=== PATIENT | female | born 1945 | race Caucasian/White ===

== ENCOUNTER 2017-10-18 11:21 | Day surgery (SDC) | payer OTHER ==
[2017-10-18] MEDS ORDERED: DiphenhydrAMINE 50 mg/ml Inj ONE (13:41)
[2017-10-18] MEDS ORDERED: Verapamil 2 ML ONE (14:01)
[2017-10-18] MEDS ORDERED: Midazolam 2 MG/2 ML VIAL ONE (14:01)
[2017-10-18] MEDS ORDERED: Iodixanol 320 MG/ML 100 ML BOTTLE IV ONE (14:02)
[2017-10-18] MEDS ORDERED: Lidocaine 2% MPF (5 ml) Inj ONE (14:14)
[2017-10-18 15:31] VITALS: BMI 28.3
--- NOTE | 2017-10-19 02:24 | CARDCATH ---
PROCEDURE DATE: 10/18/2017 INDICATIONS: Ms. Kalpana Vazquez is a 71-year-old female who was admitted to [facility] with [id number] CA. The patient underwent a cardiac catheterization for non-STEMI. PROCEDURE PERFORMED: Left heart catheterization with selective left and right coronary angiogram via right radial artery approach, 6-[place] radial arterial access, wristband for hemostasis. TECHNIQUES OF PROCEDURE: After obtaining informed consent, patient was brought to the cardiac cath suite in post-absorptive and nonsedated state. Patient was prepped and draped in the usual sterile fashion. Lidocaine 2% was used for infiltration of anesthesia. Using modified Seldinger technique, 6-[place] sheath was introduced into the left radial artery. Subsequently over a J-wire, JR4 and JL4 diagnostic catheters were used to engage the right and left coronary systems. Angiograms were obtained in different orthogonal views. Subsequently, JR4 was used to cross the aortic valve and LV gram was obtained in the ALAS view. Hemodynamics were obtained and pullback gradients were noted. HEMODYNAMIC FINDINGS: Left ventricular end-diastolic pressure was 18 mmHg. There was no gradient noted upon the aortic valve pullback. No AI. No MR. Left ventricular ejection fraction was estimated to be 30% to 35% with anterolateral wall hypokinesis and apical hypokinesis. CORONARY ANATOMY: RCA is a large-sized vessel, has a mid long segment 85% stenosis, right dominant circulation. Left coronary system; left main is a large-sized vessel and bifurcates into LAD, ramus, and left circumflex coronary artery. Left circumflex is a large-sized vessel and has mid 60% stenosis, gives off obtuse marginal branch. Ramus is a medium-sized vessel with mild nonobstructive disease. LAD is a large-sized vessel, has a proximal intermediate lesion about 55% and a mid high grade lesion at the bifurcation of diagonal 80% mid LAD stenosis. IMPRESSION: Severe two-vessel disease. RECOMMENDATIONS: Patient is to be transferred to [facility] for PCI of mid LAD and RCA. Patient is on Namenda for dementia. Thank you for letting me participate in the care of your patient. I will continue to monitor the patient. Michael Cardenas MD [facility] # [id number]
== END 2017-10-18 17:35 | disposition short-term general hospital (02) ==
LOC: C.CATHLAB 11:21
PROVIDERS: ATTEND Internal Medicine Interventional Cardiology
DX: I21.4 Non-ST elevation (NSTEMI) myocardial infarction (principal); I25.10 Atherosclerotic heart disease of native coronary artery without angina pectoris; F03.90 Unspecified dementia, unspecified severity, without behavioral disturbance, psychotic disturbance, mood disturbance, and anxiety
CPT/HCPCS: 82948; 93458; C1769; C1887; C1894; J1200; J1644; J2250; J2930; J3010; Q9967